=== PATIENT | male | born 2005 | race Hispanic/Latino ===

== ENCOUNTER 2024-12-15 23:34 | Emergency (ER) | payer OTHER ==
[~2024-12-15] VITALS: Ht 175.3 cm; Wt 83.9 kg
[2024-12-15 23:44] VITALS: BP 142/81; PULSE 50; RESP 16; TEMP 98.5; O2SAT 99
== END 2024-12-15 23:55 | disposition left against medical advice (07) ==
LOC: ER 23:34
DX: S69.91XA Unspecified injury of right wrist, hand and finger(s), initial encounter (principal); X58.XXXA Exposure to other specified factors, initial encounter; Y93.64 Activity, baseball; Y92.89 Other specified places as the place of occurrence of the external cause; Y99.8 Other external cause status
CPT/HCPCS: 99281